=== PATIENT | female | born 1950 | race Caucasian/White ===

== ENCOUNTER 2019-02-24 18:23 | Emergency (ER) | payer MEDICARE, OTHER, SELFPAY ==
[2019-02-24 18:25] VITALS: BP 181/114; PULSE 111; RESP 20; TEMP 36.7; O2SAT 96; BMI 23.7
--- NOTE | 2019-02-24 19:03 | ED.VISSUMM ---
- ER Visit Summary Date of Service: 02/24/19 Chief Complaint: Right axilla lump History of Present Illness: The patient is a 68 F no seen in past medical history. Says she is had a lump in her right armpit for about a week. Is getting larger and little bit uncomfortable. No fever or chills. She is not diabetic. She is never had an abscess before. Physical Examination: Older female no acute distress. Vital signs are stable and afebrile. HEENT exam unremarkable. Neck nontender no lymphadenopathy. Lungs clear to auscultation bilaterally. Heart regular rhythm no murmur. Abdomen soft nontender. She is moving all 4 extremities. Neurovascular intact. Her right axilla there is about a 2-3 length by 2 cm deep abscess. Minimal redness. Minimal tenderness. Positive fluctuance. This will need to incise and drain. Test Results: None Emergency Department Course and Treatment: Right axillary abscess. Incision and drainage. Procedure note: Let applied. Then local anesthetic with lidocaine. Made a 1 cm incision. Broke up any loculations and expressed pus. There was very small amount of pus only about a cc. Very minimal cavity. It was mainly inflamed and infected soft tissue. Placed 1/4 inch wick gauze to pack. This will allow us to remain open and drained. Packing put in 5 days. Treatment Plan: Warm compresses or hot shower to the area. Tylenol Motrin for pain. Pull packing in 5 days. Keflex 500 4 times daily for 10 days. Diflucan after the antibiotic. Disposition: Discharge Impression: Acute right axillary abscess Incision and drainage by ER This note was generated with [employer] dictation software. It may contain incorrect words, spelling, and punctuation that were not noted in review of the chart prior to signing ED Disposition - Plan for ED Patient: Disposition: Home or Assisted Living Instructions: ABSCESS, Incision and Drainage Prescriptions: Fluconazole [Diflucan] 200 mg PO DAILY #2 tab Prescription Printed Cephalexin [Keflex] 500 mg PO Q6 #40 cap Prescription Printed Referrals: Jhonathan Martinez MD [Primary Care Provider] - 5-7 Days Additional Instructions: Arm compresses or hot shower to the area. Pull the packing out in 5 days. Keflex 1 pill 4 times a day. For 7 to 10 days. Follow-up with your doctor. Return if looking worse.
--- NOTE | 2019-02-24 19:05 | ED.DEP ---
ED Disposition - Plan for ED Patient: Disposition: Home or Assisted Living Instructions: ABSCESS, Incision and Drainage Prescriptions: Fluconazole [Diflucan] 200 mg PO DAILY #2 tab Prescription Printed Cephalexin [Keflex] 500 mg PO Q6 #40 cap Prescription Printed Referrals: Jhonathan Martinez MD [Primary Care Provider] - 5-7 Days Additional Instructions: Arm compresses or hot shower to the area. Pull the packing out in 5 days. Keflex 1 pill 4 times a day. For 7 to 10 days. Follow-up with your doctor. Return if looking worse.
[2019-02-24] MEDS: Lidocaine/Epi/Tetracaine 50 ML 1 APPLIC TOPICAL (19:25)
[2019-02-24] MEDS: Cephalexin 250 MG Capsule 500 MG PO (20:07)
[2019-02-24 20:15] VITALS: BP 168/88; PULSE 100; RESP 17; O2SAT 99
== END 2019-02-24 20:16 | disposition home or self-care (01) ==
PROVIDERS: Emergency Provider Emergency Medicine; Family Provider Family Medicine; PCP Family Medicine
DX: L02.411 Cutaneous abscess of right axilla (principal)
CPT/HCPCS: 10061; 10060; 99284

== ENCOUNTER 2022-11-24 14:22 | Emergency (ER) | payer MEDICARE, OTHER, SELFPAY ==
[2022-11-24 14:23] VITALS: BP 191/103; PULSE 110; RESP 18; TEMP 36.2; O2SAT 99; BMI 22.1
--- NOTE | 2022-11-24 16:56 | EX.ED.DYSGE1 ---
HPI <TIM Riddle - Last Filed: 11/24/22 19:08> History of Present Illness Chief Complaint: Anxiety Narrative Narrative: Patient presenting today due to anxiety that has been worsening over the past few weeks getting to the point where she felt that she had to come in today to be evaluated. 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 However, she does have an appointment with a new PCP on Monday but does not think that she can wait until then due to her anxiety. She reports that she has had anxiety since she was in her 20s and has been treating it with an [id number] herbal medication. She denies any suicidal thoughts or ideations, homicidal thoughts, thoughts of self-harm, and auditory and visual hallucinations. PFS <TIM Riddle - Last Filed: 11/24/22 19:08> [facility] Medical History Anxiety Home Medications aspirin 81 mg chewable tablet 81 mg PO DAILY@0800 12/30/13 [History Last Taken 12/27/13 81 MG] cephalexin 500 mg capsule 500 mg PO Q6 #40 caps 02/24/19 [Rx Last Taken Unknown] fluconazole 100 mg tablet 200 mg (2 x 100 mg) PO DAILY #2 tabs 02/24/19 [Rx Last Taken Unknown] hydroxyzine HCl 25 mg tablet 25 mg PO TID PRN anxiety 3 days #9 tabs 11/24/22 [Rx Last Taken Unknown] Allergy/AdvReac Type Severity Reaction Status Date / Time Penicillins Allergy Unknown Verified 11/24/22 14:25 erythromycin base AdvReac Nausea Verified 11/24/22 14:25 Social History Smoking Status: Never smoker ROS <TIM Riddle - Last Filed: 11/24/22 19:08> ROS ED Constitutional Constitutional ED: Denies chills or fever(s) Eyes Eyes: Denies blurry vision or diplopia Cardiovascular Cardiovascular: Denies chest pain or palpitations Respiratory/Chest Respiratory/Chest: Denies cough, dyspnea, tachypnea or wheezing Gastrointestinal Gastrointestinal: Denies abdominal pain, nausea or vomiting Musculoskeletal Musculoskeletal: Denies arthralgias or myalgias Integumentary Denies rash Neurologic Neurologic: Denies weakness Psychiatric Psychiatric: Reports anxiety; Denies depression, suicidal ideation or suicidal thoughts EXAM <TIM Riddle - Last Filed: 11/24/22 19:08> Physical Exam Const Vital Signs: 11/24/22 14:23 11/24/22 18:02 Temperature 97.2 F L Temperature Source Temporal Pulse Rate 110 H 82 Respiratory Rate 18 16 Blood Pressure 191/103 H 150/78 H Blood Pressure Mean 132 102 Pulse Ox 99 98 Oxygen Delivery Method Room Air Room Air Positive well nourished, well developed and no apparent distress General Appearance ED: well developed HEENT Reports normocephalic and head/scalp atraumatic Mouth ED: Yes moist mucous membranes normal Eyes PERRL and EOMs intact bilaterally Neck full ROM and supple Chest Wall inspection of chest normal Resp normal respiratory effort and clear to auscultation bilaterally Cardio regular rate and regular rhythm GI soft to palpation, non-tender, non-distended and no masses Back/Spine normal ROM and normal to inspection Extremity normal to inspection and full ROM Neuro oriented x3, CN's II-XII intact bilaterally, moves all extremities, no focal motor deficits and no sensory deficits noted Sensorium / Orientation: awake and alert Psych Psych Narrative: Patient appears to be anxious on examination. Activity / Motor Behavior: appropriate eye contact Mood & Affect: anxious Skin no rashes or lesions noted and no wounds <Dr. Bruce Jacome, - Last Filed: 11/24/22 19:01> Physical Exam Const Vital Signs: 11/24/22 14:23 11/24/22 18:02 Temperature 97.2 F L Temperature Source Temporal Pulse Rate 110 H 82 Respiratory Rate 18 16 Blood Pressure 191/103 H 150/78 H Blood Pressure Mean 132 102 Pulse Ox 99 98 Oxygen Delivery Method Room Air Room Air MDM <TIM Riddle - Last Filed: 11/24/22 19:08> [facility] MDM Narrative Medical decision making narrative: Patient presenting today due to anxiety that started few weeks ago that she has had chronically since she was around 19 years old. She has never been treated for this as she has a phobia of seeing a doctor and reports that whenever she has to be seen it worsens her anxiety. However, she does have a new PCP, Dr. Gurrola that she will be seeing on Monday for the first time for her anxiety. She does appear to be very anxious here but denies any suicidal thoughts, thoughts of self-harm, or thoughts of hurting others. She was given a dose of Ativan here and reports improvement of her symptoms. She will be given a prescription for hydroxyzine and is to follow-up with her PCP. She has been given return instructions and will be discharged home in stable condition. Her blood pressure did improve upon discharge. She is comfortable with plan. <Dr. Bruce Jacome, DO - Last Filed: 11/24/22 19:01> [facility] Treatment and Re-Evaluation :: I have personally performed a face to face assessment of the patient and have reviewed the ELSA Note. I performed a substantive portion of the visit including all aspects of the following. My loving findings include: History: Patient presents with anxiety that has been getting worse over the past several days. Patient states she has had problems with anxiety since she was in her 20s. Patient denies any suicidal homicidal ideations. Patient states she went to dinner with family members and started feeling more anxious. Patient states she was unable to finish her meals. Patient states she has an appointment with her primary care physician in 4 days. Patient states she does not like seeing doctors and does not like taking medications. Exam: Vital signs are stable. Patient is afebrile. Patient is in no acute distress. Patient is anxious on examination. Patient denies any suicidal or homicidal ideations. Heart was regular rate and rhythm. Lungs are clear and equal bilateral. Abdomen is soft. Bowel sounds are normal. There is no tenderness. Cranial nerves II through XII are intact. There are no focal motor or sensory deficits noted. Medical Decision Making: Patient was given a dose of Ativan here. Patient is feeling better on reevaluation. Patient was given a prescription for hydroxyzine. Patient was instructed to follow-up with her primary care physician as scheduled. Patient was instructed return if worse in any way. Patient understood and was agreeable with the plan. All questions were answered. Discharge Plan Triage Chief Complaint: Anxiety ED Midlevel Provider: Bea Gomez ED Provider: Bruce Jacome Dx/Rx/DC Orders Clinical Impression: Anxiety Instructions: ED Anxiety Reaction Prescriptions: New hydroxyzine HCl 25 mg tablet 25 mg PO TID PRN (Reason: anxiety) 3 Days Qty: 9 0RF No Action aspirin 81 MG tablet,chewable 81 mg PO DAILY@0800 Patient Comments: heart health cephalexin 500 MG capsule 500 mg PO Q6 Qty: 40 0RF fluconazole 100 MG tablet 200 mg PO DAILY Qty: 2 0RF Primary Care Provider: Sushma Gurrola Referrals: Sushma Gurrola MD [[facility]] - 3-5 Days Activity Restrictions/Additional Instructions: Please follow-up with your PCP on Monday and return for any worsening of your symptoms. Disposition Disposition: Home, Self Care
[2022-11-24] MEDS: LORazepam 1 MG Tablet PO (17:05)
[2022-11-24 18:02] VITALS: BP 150/78; PULSE 82; RESP 16; O2SAT 98
== END 2022-11-24 19:20 | disposition home or self-care (01) ==
PROVIDERS: Emergency Provider Emergency Medicine; PCP Family Medicine; Visit Provider Emergency Medicine
DX: F41.9 Anxiety disorder, unspecified (principal)
CPT/HCPCS: 99283

== ENCOUNTER 2023-03-31 21:42 | Emergency (ER) | payer MEDICARE, OTHER, SELFPAY ==
[2023-03-31 21:44] VITALS: BP 164/95; PULSE 113; RESP 16; TEMP 36.3; BMI 21.9
[2023-03-31 21:45] VITALS: BP 164/95; PULSE 113; RESP 16; TEMP 36.3
--- NOTE | 2023-03-31 22:21 | ED.VIS.GI ---
HPI HPI - GI History of Present Illness Chief Complaint: Nausea/Vomiting/Diarrhea Informant: patient Narrative Narrative: 72-year-old female states last night she started getting nasal congestion and rhinorrhea followed by some sinus discomfort, she had a headache last night but she does not have a headache tonight, she has vomited twice since she is very nauseated, she states the latter brought her to the emergency department. She has had diarrhea 5 times or less today, loose borderline watery no blood or melena, she denies pain other than feeling very nauseated, she denies any chest discomfort or shortness of breath, lightheadedness, syncope, she states she had a low-grade fever of 100 no known sick contacts. No recent antibiotics. No travel out of the area. No suspicious food intake. PFSH PFSH Medical History Anxiety Home Medications aspirin 81 mg chewable tablet 81 mg PO DAILY@0800 12/30/13 [History Last Taken 12/27/13 81 MG] cephalexin 500 mg capsule 500 mg PO Q6 #40 caps 02/24/19 [Rx Last Taken Unknown] fluconazole 100 mg tablet 200 mg (2 x 100 mg) PO DAILY #2 tabs 02/24/19 [Rx Last Taken Unknown] hydroxyzine HCl 25 mg tablet 25 mg PO TID PRN anxiety 3 days #9 tabs 11/24/22 [Rx Last Taken Unknown] ondansetron 4 mg disintegrating tablet 8 mg (2 x 4 mg) PO Q8H PRN PRN Nausea #20 tabs 03/31/23 [Rx Last Taken Unknown] Allergy/AdvReac Type Severity Reaction Status Date / Time Penicillins Allergy Unknown Verified 03/31/23 21:43 erythromycin base AdvReac Nausea Verified 03/31/23 21:43 Social History Smoking Status: Never smoker ROS ROS ED Constitutional Constitutional ED: Denies chills or fever(s) Eyes Eyes: Denies change in vision or diplopia ENT ENT ED: Reports nasal congestion, rhinorrhea, sinus pressure and other Details: Ears popping on occasion, denies earache right now ; Denies headache(s) or sore throat Cardiovascular Cardiovascular: Denies chest pain or palpitations Respiratory/Chest Respiratory/Chest: Denies cough or dyspnea Gastrointestinal Gastrointestinal: Reports diarrhea, nausea and vomiting; Denies abdominal pain or melena Genitourinary Genitourinary ED: Denies dysuria or hematuria Musculoskeletal Musculoskeletal: Denies back pain or neck pain Integumentary Denies abscess or rash Neurologic Neurologic: Denies headache(s), paresthesias or weakness Psychiatric Psychiatric: Reports anxiety; Denies suicidal thoughts EXAM Physical Exam Const Vital Signs: 03/31/23 21:44 03/31/23 21:45 Temperature 97.4 F L 97.4 F L Temperature Source Temporal Temporal Pulse Rate 113 H 113 H Respiratory Rate 16 16 Blood Pressure 164/95 H 164/95 H Blood Pressure Mean 118 118 Positive well nourished and well developed General Appearance ED: well developed and NAD HEENT Reports moist mucous membranes HEENT Narrative: No sinus tachycardia throughout face. No purulent nasal discharge or significant nasal turbinate edema. normocephalic and atraumatic Eyes PERRL and EOMs intact bilaterally Neck full ROM and supple Resp normal respiratory effort and clear to auscultation bilaterally Cardio regular rate, regular rhythm and no murmurs GI non-tender and non-distended GI Narrative: Soft benign abdomen Auscultation: normoactive bowel sounds Palpation: soft; Negative for pulsatile mass Back/Spine no CVA tenderness General Back: other FROM Extremity normal to inspection General Extremety ED: Negative for edema, pulses abnormal or tenderness General Extremity: Negative for edema or pulses abnormal Neuro oriented x3, CN's II-XII intact bilaterally and no sensory deficits noted Sensorium / Orientation: awake and alert Motor Exam: strength 5/5 throughout Psych Psych Narrative: Seems very anxious Skin no rashes or lesions noted and no wounds MDM MDM MDM Narrative Medical decision making narrative: Patient's abdomen very benign. Labs obtained, her potassium is a little low however she is very anxious which she admits to and is a little tachypneic which may be contributing to that. She is only vomited twice. I will give her a potassium pill 20 mill equivalents but I do not think she needs any more than that. She is doing well on reevaluation after IV fluids and Zofran, she is tolerating oral fluids, I think she is stable to go. With a low-grade fever she was having I suspect this is probably viral in etiology. Reassured given appropriate discharge instructions along with a prescription for Zofran and follow-up instructions and reasons to return. With regards to the sinus congestion I see no evidence of a bacterial infection that requires antibiotics here. She was told about nasal decongestants. Lab Data Attestation: I reviewed the patient's lab results. Labs: Laboratory Results - last 24 hr 03/31/23 22:25 WBC 8.6 RBC 4.36 Hgb 12.4 Hct 37.2 MCV 85.3 MCH 28.4 MCHC 33.3 RDW Std Deviation 39.9 RDW Coeff of Mikayla 12.9 Plt Count 243 MPV 8.9 Immature Gran % (Auto) 0.300 Neut % (Auto) 79.8 H Lymph % (Auto) 11.9 L [place] % (Auto) 7.8 Eos % (Auto) 0.0 Baso % (Auto) 0.2 Absolute Neuts (auto) 6.9 Absolute Lymphs (auto) 1.03 Nucleated RBC % 0 Sodium 129 L Potassium 3.0 L Chloride 98 Carbon Dioxide 25.0 Anion Gap 6 BUN 9 Creatinine 0.65 Estim Creat Clear Calc 41.45 Est GFR (MDRD) Af Amer 114 Est GFR (MDRD) Non-Af 94 BUN/Creatinine Ratio 13.8 Glucose 140 H Calcium 8.7 Total Bilirubin 0.50 AST 19 ALT 17 Alkaline Phosphatase 84 Total Protein 7.7 Albumin 3.6 Globulin 4.1 Albumin/Globulin Ratio 0.9 Lipase 31 Discharge Plan Triage Chief Complaint: Nausea/Vomiting/Diarrhea ED Provider: Edmond Agrawal Dx/Rx/DC Orders Clinical Impression: Sinus congestion, Gastroenteritis Instructions: ED Gastroenteritis, Viral (Adult) Prescriptions: New ondansetron [ondansetron] 4 mg tablet,disintegrating 8 mg PO Q8H PRN PRN (Reason: Nausea) Qty: 20 0RF No Action aspirin 81 MG tablet,chewable 81 mg PO DAILY@0800 Patient Comments: heart health cephalexin 500 MG capsule 500 mg PO Q6 Qty: 40 0RF fluconazole 100 MG tablet 200 mg PO DAILY Qty: 2 0RF hydroxyzine HCl 25 mg tablet 25 mg PO TID PRN (Reason: anxiety) 3 Days Qty: 9 0RF Primary Care Provider: Jhonathan Martinez Referrals: Jhonathan Martinez MD [Primary Care Provider] - 3-5 Days if not improving Disposition Disposition: Home, Self Care
[2023-03-31 22:36] LABS: Absolute Lymphocyte Count 1.03 X10^3/uL (0.83-4.51); Absolute Neutrophil Count 6.9 X10^3/uL (2.0-7.7); Basophil# 0.02 X10^3/uL; Basophil% 0.2 % (0-1); Hematocrit 37.2 % (37-47); Hemoglobin 12.4 g/dL (12.0-15.0); Lymphocyte # 1.03 X10^3/ul (0.83-4.51); Lymphocyte % 11.9 % (19-41); Mean Corp Hgb Conc 33.3 g/dL (32-36); Mean Corpuscular Hgb 28.4 pg (27.0-32.0); Mean Corpuscular Volume 85.3 fL (81-99); Mean Platelet Vol. 8.9 fl (6.2-12.0); Monocyte# 0.67 X10^3/uL; Monocyte% 7.8 % (0-10); NRBC Flagged by Analyzer 0 % (0-5); Neutrophil # 6.88 X10^3/uL (2.7-7.7); Neutrophil % 79.8 % (47-70); Platelet Count 243 K/mm3 (150-450); RBC Distribution Width CV 12.9 % (11.6-14.6); RBC Distribution Width SD 39.9 fl (35.1-43.9); Red Blood Count 4.36 M/mm3 (4.2-5.4); White Blood Count 8.6 K/mm3 (4.4-11.0)
[2023-03-31 22:53] LABS: ALB/GLOB Ratio 0.9 RATIO (0.9-2.4); AST(SGOT) 19 U/L (15-37); Alanine Aminotransfer ALT/SGPT 17 U/L (13-56); Albumin, Serum 3.6 g/dL (3.2-5.0); Alkaline Phosphatase 84 U/L (45-117); Anion Gap 6 (5-15); BUN 9 mg/dL (7-18); BUN/Creat Ratio 13.8 RATIO (10-20); Calcium,Total 8.7 mg/dL (8.5-10.1); Chloride 98 mmol/L (98-107); Creatinine, Serum 0.65 mg/dL (0.55-1.02); EST Glomerular Filtration Rate 94 mL/min (>60); Est Glom Filt Rate - Afr Amer 114 mL/min (>60); Estimated Creatinine Clearance 41.45 ml/min; Globulin 4.1 g/dL (2.2-4.2); Glucose 140 mg/dL (74-106); Lipase 31 U/L (13-75); Protein, Total 7.7 g/dL (6.4-8.2); Sodium Level 129 mmol/L (136-145)
[2023-03-31] MEDS: Ondansetron 4 MG/2 ML Vial IV (23:02)
[2023-03-31] MEDS: 0.9% Normal Saline (1000mL) 1,000 ML 1000 ML IV (23:02)
[2023-04-01 00:19] VITALS: BP 159/79
[2023-04-01] MEDS: Potassium Chloride Oral Tablet 20 MEQ PO (00:23)
[2023-04-01 00:45] VITALS: BP 159/79
== END 2023-04-01 00:46 | disposition home or self-care (01) ==
PROVIDERS: Emergency Provider Emergency Medicine; PCP Family Medicine; Visit Provider Emergency Medicine
DX: R09.81 Nasal congestion (principal); K52.9 Noninfective gastroenteritis and colitis, unspecified
CPT/HCPCS: 80053; 83690; 85025; 96361; 96374; 99282; J7030; A4216; J2405